=== PATIENT | male | born 1975 | race Caucasian/White ===

== ENCOUNTER 2017-04-26 11:41 | Emergency (ER) | payer SELFPAY ==
[~2017-04-26 11:41] MED LIST: SERT-234 PO
[2017-04-26 11:48] VITALS: TEMP 36.4; Ht 172.7 cm
[2017-04-26] MEDS ORDERED: SODIUM CHLORIDE 0.9% 1000ML 1,000 ML IV STA (12:02)
[2017-04-26] MEDS ORDERED: HYDROmorphone INJ 1 MG/ML SYR IV STA ×2 (12:02→14:03)
[2017-04-26] MEDS ORDERED: ONDANSETRON INJ 2 MG/ML 2 ML VIAL IV STA (12:02)
[2017-04-26] MEDS ORDERED: KETOROLAC TROMETHAMINE 30 MG/ML VIAL IV STA (12:02)
[2017-04-26] MEDS ORDERED: ONDANSETRON INJ 2 MG/ML 2 ML VIAL ONE (12:04)
[2017-04-26] MEDS ORDERED: HYDROmorphone INJ 1 MG/ML SYR ONE (12:04)
[2017-04-26] MEDS ORDERED: KETOROLAC TROMETHAMINE 30 MG/ML VIAL ONE (12:04)
--- NOTE | 2017-04-26 12:15 | EMERGENCY ROOM VISIT NOTE ---
History Report prepared by [place]: Anastasia Vazquez Under the Supervision of: Dr. Adarsh Siegel M.D. First contact with patient: 11:54 Chief Complaint: FLANK PAIN Stated Complaint: RT SIDE PAIN, VOMITING, BLOOD IN URINE, FEVER History of Present Illness The patient is a 41 year old male who presents to the Emergency Room with complaints of constant right sided flank pain beginning 1 week ago. The patient states that he started feeling feverish 1 week ago and went to see his primary care doctor 4 days ago, He reports that he had a urine test and a CT scan of his sinuses. He notes that he was put on Doxycycline and a renal ultrasound was ordered for tomorrow. The patient complains of a constant fever beginning 1 week ago, abdominal pain, nausea, and vomiting. He states that he has been taking only Tylenol for his pain. He rates his pain as a 10/10 in severity. Source of History: patient Onset: 1 week ago Position: other (right flank) Symptom Intensity: 10/10 Timing: constant Associated Symptoms: + fevers, + nausea, + vomiting, + abdominal pain Review of Systems See HPI for pertinent positives & negatives. A total of 10 systems reviewed and were otherwise negative. Past Medical & Surgical Medical Problems: (1) Anxiety Family History No pertinent family history stated. Social History Smoking Status: Never Smoker Marital Status: Occupation Status: employed Current/Historical Medications Scheduled Sulfa/Trimethoprim (Bactrim Ds 800MG/160MG), 1 TAB PO BID Tamsulosin Hcl (Flomax), 0.4 MG PO DAILY Scheduled PRN Oxycodone/Acetaminophen 5MG/325MG (Percocet 5MG/325MG), 1-2 TAB PO Q4H PRN for Pain Allergies Coded Allergies: No Known Allergies (Unverified , 04/26/17) Physical Exam Vital Signs Date Time Temp Pulse Resp B/P (MAP) Pulse Ox O2 Delivery O2 Flow Rate FiO2 04/26/17 13:46 66 22 130/67 95 Room Air 04/26/17 12:56 62 04/26/17 12:47 68 20 139/70 95 Room Air 04/26/17 11:48 36.4 68 22 169/96 94 Room Air Physical Exam GENERAL: Patient is a healthy-appearing well-nourished uncomfortable male HEAD: Normocephalic atraumatic EYES: Ocular movements intact pupils equal and react to light OROPHARYNX mucous membranes are moist no exudates present no erythema or edema present NECK: Supple no nuchal rigidity CHEST: Good equal expansion LUNGS: Clear and equal to auscultation CARDIAC: Normal S1 and S2 ABDOMEN: Soft nontender no guarding BACK: No CVA tenderness EXTREMITIES: No pain upon palpation normal muscle strength in all groups no clubbing cyanosis or edema NEURO: Patient is following commands and answering questions appropriately. Alert and oriented x3 Cranial Nerves 2-12 grossly intact Medical Decision & Procedures ER Provider Diagnostic Interpretation: CT results as stated below per my review and radiologist interpretation: CT SCAN OF THE ABDOMEN AND PELVIS WITHOUT CONTRAST FINDINGS: Lower chest: There are mild basilar atelectatic changes. Liver: The unenhanced liver is normal in size, contour, and attenuation. There is no intrahepatic biliary ductal dilatation. There is a small hiatal hernia with borderline thickening at the esophagogastric junction. Gallbladder: Unremarkable. Spleen: No focal splenic masses are visualized. The spleen is mildly enlarged measuring 12.5 cm. Pancreas: Unremarkable. Adrenal glands: Unremarkable. Kidneys: No renal calculi are visualized. There is mild right-sided hydronephrosis and hydroureter. There is a 4.5 mm distal right ureteral calculus near the level of ureteropelvic junction. Bowel: There are no transition zones indicate bowel obstruction. There is no acute diverticulitis. The appendix appears normal. Peritoneum: There is no intraperitoneal free air or abdominal ascites. Vasculature: The abdominal aorta is normal in course and caliber. Adenopathy: None. Pelvic viscera: The prostate is the upper limits of normal in size Skeletal structures: No destructive osseous lesions are seen. IMPRESSION: 4.5 mm distal right ureteral calculus with mild secondary obstructive change Electronically signed by: Toni Marrufo M.D. 04/26/2017 12:32 PM Dictated Date/Time: 04/26/2017 12:27 PM Laboratory Results 04/26/17 12:00 Red Blood Count 5.38, Mean Corpuscular Volume 86.6, Mean Corpuscular Hemoglobin 29.9, Mean Corpuscular Hemoglobin Concent 34.5, Mean Platelet Volume 10.3 04/26/17 12:00 Test 04/26/17 12:00 04/26/17 12:10 White Blood Count 5.21 K/uL (4.8-10.8) Red Blood Count 5.38 M/uL (4.7-6.1) Hemoglobin 16.1 g/dL (14.0-18.0) Hematocrit 46.6 % (42-52) Mean Corpuscular Volume 86.6 fL (80-100) Mean Corpuscular Hemoglobin 29.9 pg (25-34) Mean Corpuscular Hemoglobin Concent 34.5 g/dl (32-36) Platelet Count 166 K/uL (130-400) Mean Platelet Volume 10.3 fL (7.4-10.4) RDW Standard Deviation 37.4 fL (36.4-46.3) RDW Coefficient of Variation 11.7 % (11.5-14.5) Neutrophils % (Manual) 47.9 % Lymphocytes % (Manual) 24.3 % Variant Lymphocytes % (manual) 20.0 % Monocytes % (Manual) 7.8 % Neutrophils # (Manual) 2.50 K/uL (1.4-6.5) Total Absolute Neutrophils 2.50 K/uL (1.4-6.5) Lymphocytes # (Manual) 1.27 K/uL (1.2-3.4) Absolute Variant Lymphocytes 1.04 K/uL Total Absolute Lymphocytes 2.31 K/uL (1.2-3.4) Monocytes # (Manual) 0.41 K/uL (0.11-0.59) Anion Gap 7.0 mmol/L (3-11) Estimated GFR () 70.8 Estimated GFR (Non- 61.1 BUN/Creatinine Ratio 7.9 (10-20) Calcium Level 9.1 mg/dl (8.5-10.1) Total Bilirubin 0.5 mg/dl (0.2-1) Direct Bilirubin 0.1 mg/dl (0-0.2) Aspartate Amino Transf (AST/SGOT) 34 U/L (15-37) Alanine Aminotransferase (ALT/SGPT) 58 U/L (12-78) Alkaline Phosphatase 77 U/L (45-117) Total Protein 7.5 gm/dl (6.4-8.2) Albumin 4.2 gm/dl (3.4-5.0) Lipase 192 U/L (73-393) Urine Color ANDRY Urine Appearance CLOUDY (CLEAR) Urine pH 5.0 (4.5-7.5) Urine Specific [place] 1.035 (1.000-1.030) Urine Protein 2+ (NEG) Urine Glucose (UA) NEG (NEG) Urine Ketones TRACE (NEG) Urine Occult Blood 3+ (NEG) Urine Nitrite NEG (NEG) Urine Bilirubin NEG (NEG) Urine Urobilinogen NEG (NEG) Urine Leukocyte Esterase TRACE (NEG) Urine WBC (Auto) 1-5 /hpf (0-5) Urine RBC (Auto) >30 /hpf (0-4) Urine Hyaline Casts (Auto) 1-5 /lpf (0-5) Urine Epithelial Cells (Auto) 5-10 /lpf (0-5) Urine Bacteria (Auto) 1+ (NEG) Urine Crystals CALCIUM OXALATE (NONE Urine Mucus PRESENT (NONE PRSENT) Labs reviewed by ED physician. Medications Administered Medications (Trade) Dose Ordered Sig/Malinda Route Start Time Stop Time Status Last Admin Dose Admin Hydromorphone HCl (Dilaudid Inj) 1 mg STK-MED ONCE .ROUTE 04/26/17 12:04 04/26/17 12:05 DC 04/26/17 12:23 1 MG Ondansetron HCl (Zofran Inj) 4 mg STK-MED ONCE .ROUTE 04/26/17 12:04 04/26/17 12:05 DC 04/26/17 12:23 4 MG Sodium Chloride 1,000 ml @ 999 mls/hr Q1H1M STAT IV 04/26/17 12:02 04/26/17 13:02 DC 04/26/17 12:22 999 MLS/HR Ketorolac Tromethamine (Toradol Inj) 30 mg NOW STAT IV 04/26/17 12:02 04/26/17 12:05 DC 04/26/17 12:22 30 MG Tamsulosin HCl (Flomax Cap) 0.4 mg NOW ONCE PO 04/26/17 13:00 04/26/17 13:01 DC 04/26/17 12:59 0.4 MG Ceftriaxone Sodium (Rocephin Inj) 1 gm NOW STAT IV 04/26/17 13:16 04/26/17 13:17 DC 04/26/17 13:24 1 GM Trimethoprim/ Sulfamethoxazole (Septra Ds 800/ 160MG Tab) 1 tab NOW STAT PO 04/26/17 13:16 04/26/17 13:17 DC 04/26/17 13:24 1 TAB ED Course 1154: Past medical records reviewed. The patient was evaluated in room C1. A complete history and physical examination was performed. 1202: Zofran Inj 4mg IV, Dilaudid Inj 1mg IV, Toradol Inj 30mg IV, Sodium Chloride 1000 ml @ 999 mls/hr IV. 1204: Toradol Inj 30mg IV, Zofran Inj 4mg IV, Dilaudid Inj 1mg IV. 1300: Flomax Cap 0.4mg PO. 1316: Trimethoprim/Sulfamethoxazole 1tab PO, Rocephin Inj 1gm IV. 1329: Upon reexamination the patient is doing well. I discussed results and treatment plan with the patient. He verbalizes agreement and understanding. The patient is ready for discharge. Medical Decision Differential diagnosis: Etiologies such as renal colic, appendicitis, diverticulitis, mesenteric ischemia, aortic pathology, infections, inflammatory bowel disease, PUD, biliary pathology, UTI, as well as others were entertained. This is a 41-year-old male who presents emergency department very uncomfortable. He is complaining of right-sided flank pain. I will note that he is not running a fever and does not have an elevation in his white blood count cell count. An IV was established, patient given 1 mg of Dilaudid, Zofran , Toradol. Repeat examination revealed much improvement the patient's symptoms. The patient does have a small kidney stone present that I do believe he is about to pass. I will place the patient on Flomax and discussed the need for follow-up with urology. Patient was told to return to the emergency department if he develops fevers. Patient was in agreement with the treatment plan. Medication Reconcilliation Current Medication List: was personally reviewed by me Blood Pressure Screening Patient's blood pressure: Elevated blood pressure Blood pressure disposition: Referred to PCP Impression Primary Impression: Kidney stone Scribe Attestation The scribe's documentation has been prepared under my direction and personally reviewed by me in its entirety. I confirm that the note above accurately reflects all work, treatment, procedures, and medical decision making performed by me. Departure Information Dispostion Home / Self-Care Prescriptions Tamsulosin Hcl (FLOMAX) 0.4 Mg Cap 0.4 MG PO DAILY for 10 Days, #10 CAP Prov: Adarsh Siegel MD 04/26/17 Sulfa/Trimethoprim (Bactrim Ds 800MG/160MG) Tab 1 TAB PO BID for 10 Days, #20 TAB Prov: Adarsh Siegel MD 04/26/17 Oxycodone/Acetaminophen 5MG/325MG (PERCOCET 5MG/325MG) Tab 1-2 TAB PO Q4H Y for Pain, #14 TAB Prov: Adarsh Siegel MD 04/26/17 Referrals Anne Gauthier M.D. (PCP) Forms HOME CARE DOCUMENTATION FORM, IMPORTANT VISIT INFORMATION Patient Instructions Hypertension Dc, Kidney Stones - [facility], Kidney Stones Eval, Kidney Stones Expectant Therapy, Kidney Stones Identify, Kidney Stones Risk, My [facility] Additional Instructions Follow up with Dr Lance You were found to have an elevated blood pressure today (>120 sytolic or >90 diastolic). Per medicare guidelines, you need to follow up with this blood pressure screening with your Primary Care Physician (PCP). For a new PCP call [phone]. You received narcotic or benzodiazepene medication while in the emergency room today. Do not drive, operate heavy machinery, or drink alcohol under the influence of this medication. Take 600 mg Ibuprofen every 6 hours Take Percocet for breakthrough pain You have been examined and treated today on an emergency basis only. This is not a substitute for, or an effort to provide, complete comprehensive medical care. It is impossible to recognize and treat all injuries or illnesses in a single emergency department visit. It is therefore important that you follow up closely with Dr Gauthier. Call as soon as possible for an appointment. Thank you for your time and consideration. I look forward to speaking with you again soon. Please don't hesitate to call us if you have any questions.
[2017-04-26 12:16] LABS: HEMATOCRIT 46.6 % (42-52); MEAN CELL VOLUME 86.6 fL (80-100); MEAN CORPUSCULAR HEMOGLOBIN 29.9 pg (25-34); MEAN CORPUSCULAR HGB CONC 34.5 g/dl (32-36); MEAN PLATELET VOLUME 10.3 fL (7.4-10.4); PLATELET COUNT 166 K/uL (130-400); RED BLOOD COUNT 5.38 M/uL (4.7-6.1); WHITE BLOOD COUNT 5.21 K/uL (4.8-10.8)
--- NOTE | 2017-04-26 12:33 | DIAGNOSTIC IMAGING REPORT ---
CT SCAN OF THE ABDOMEN AND PELVIS WITHOUT CONTRAST CLINICAL HISTORY: Right flank pain COMPARISON STUDY: No previous studies for comparison. TECHNIQUE: CT scan of the abdomen and pelvis was performed from the lung bases to the proximal femurs. Images are reviewed in the axial, sagittal, and coronal planes. IV contrast was not administered for this examination. A dose lowering technique was utilized adhering to the principles of ALARA. CT DOSE: 335.75 mGy.cm FINDINGS: Lower chest: There are mild basilar atelectatic changes. Liver: The unenhanced liver is normal in size, contour, and attenuation. There is no intrahepatic biliary ductal dilatation. There is a small hiatal hernia with borderline thickening at the esophagogastric junction. Gallbladder: Unremarkable. Spleen: No focal splenic masses are visualized. The spleen is mildly enlarged measuring 12.5 cm. Pancreas: Unremarkable. Adrenal glands: Unremarkable. Kidneys: No renal calculi are visualized. There is mild right-sided hydronephrosis and hydroureter. There is a 4.5 mm distal right ureteral calculus near the level of ureteropelvic junction. Bowel: There are no transition zones indicate bowel obstruction. There is no acute diverticulitis. The appendix appears normal. Peritoneum: There is no intraperitoneal free air or abdominal ascites. Vasculature: The abdominal aorta is normal in course and caliber. Adenopathy: None. Pelvic viscera: The prostate is the upper limits of normal in size Skeletal structures: No destructive osseous lesions are seen. IMPRESSION: 4.5 mm distal right ureteral calculus with mild secondary obstructive change Electronically signed by: Toni Marrufo M.D. 04/26/2017 12:32 PM Dictated Date/Time: 04/26/2017 12:27 PM
[2017-04-26 12:34] LABS: URINE APPEARANCE CLOUDY (CLEAR); URINE NITRITE NEG (NEG); URINE SPECIFIC GRAVITY 1.035 (1.000-1.030); UROBILINOGEN NEG (NEG)
[2017-04-26 12:41] LABS: COMPLETE YES; LYMPH ABS # 1.27 K/uL (1.2-3.4); LYMPHOCYTE % 24.3 %; NEUTROPHILS % 47.9 %; VARIANT LYM ABS # 1.04 K/uL
[2017-04-26 12:42] LABS: ALT/SGPT 58 U/L (12-78); AST/SGOT 34 U/L (15-37); BLOOD UREA NITROGEN 11 mg/dl (7-18); BUN/CREATININE RATIO 7.9 (10-20); CALCIUM 9.1 mg/dl (8.5-10.1); CARBON DIOXIDE 26 mmol/L (21-32); CHLORIDE 107 mmol/L (98-107); GLUCOSE 110 mg/dl (70-99); SODIUM 140 mmol/L (136-145)
[2017-04-26 12:45] LABS: ALKALINE PHOSPHATASE 77 U/L (45-117)
[2017-04-26 12:55] LABS: MANUAL MICROSCOPIC REQUIRED? NO; REVIEW REQ? YES; URINE BILIRUBIN NEG (NEG); URINE COLOR AMBER
[2017-04-26] MEDS ORDERED: TAMSULOSIN HCL 0.4 MG CAP PO ONE (13:00)
[2017-04-26 13:04] LABS: URINE MUCUS PRESENT (NONE PRSENT)
[2017-04-26 13:08] LABS: ZZUR CULT IF INDIC CLEAN CATCH YES
[2017-04-26] MEDS ORDERED: SULFAMETHOXAZOLE/TRIMETHOPRIM DS 800/160MG TAB PO STA (13:16)
[2017-04-26] MEDS ORDERED: CEFTRIAXONE SOD INJ 1 GM ADDVIAL IV STA (13:16)
[2017-04-26] MEDS ORDERED: SULF800T23 PO (13:20)
[2017-04-26] MEDS ORDERED: TAMS0.4C38 PO (13:20)
[2017-04-26] MEDS ORDERED: OXYC-57 PO (13:20)
[2017-04-26 13:46] VITALS: BP 130/67; PULSE 66; O2SAT 95
[2017-05-01] MEDS ORDERED: IBUP-1450 PO (14:32)
[2017-05-01] MEDS ORDERED: OXYC-57 PO (16:02)
[2017-05-08] MEDS ORDERED: PARO1TAB27 PO (09:14)
[2017-05-08] MEDS ORDERED: TAMS0.4C38 PO (09:14)
[2017-05-08] MEDS ORDERED: bactrim PO (09:14)
[2017-05-08] MEDS ORDERED: FAMO20TA11 PO (09:27)
[2017-05-25] MEDS ORDERED: OXYC-57 PO (13:51)
[2017-05-25] MEDS ORDERED: CIPR-255 PO (13:51)
[2017-05-25] MEDS ORDERED: PHEN-775 PO (13:51)
== END 2017-04-26 14:02 | disposition home or self-care (01) ==
LOC: C.EDB 11:42 → C.EDA 14:02
DX: N20.0 Calculus of kidney (principal); F41.9 Anxiety disorder, unspecified

== ENCOUNTER → 2017-05-01 | Day surgery (SDC) | payer SELFPAY ==
[~2017-05-01] VITALS: Ht 172.7 cm; Wt 84.0 kg
[~2017-05-01] MED LIST changes: +ATROPINE SULFATE 0.1 MG/ML 5ML SYR IV PRN; +CIPR-255 PO; +CIPROFLOXACIN / D5W 400 MG IV SCH; +CONRAY 30% 150ML BOTTLE ONE; +ESMOLOL HCL 10 MG/ML 10 ML VIAL ONE; +EpHEDrine SULFATE INJ 50 MG/ML AMP IV PRN; +FAMO20TA11 PO; +FENTANYL CITRATE INJ 50 MCG/1 ML 2 ML VIAL ONE; +GENTAMICIN INJ 120 MG in DEXTROSE 5% 100ML 100 ML IV SCH; +IBUP-1450 PO; +KETOROLAC TROMETHAMINE 30 MG/ML VIAL ONE; +LIDOCAINE HCL 2% 2 ML VIAL (20MG/ML) ONE; +MIDAZOLAM HCL 1 MG/ML 2ML VIAL ONE; +OXYC-57 PO; +OXYCODONE/ACETAMINOPHEN 5-325 TAB PO PRN; +PARO1TAB27 PO; +PHEN-775 PO; +PROPOFOL IV EMULSION 10 MG/ML 20 ML VIAL IV ONE; -SERT-234 PO; +SUCCINYLCHOLINE CHLORIDE 20 MG/ML 10 ML VIAL IV ONE; +SULF800T23 PO; +TAMS0.4C38 PO; +bactrim PO
--- NOTE | 2017-05-01 14:24 | DIAGNOSTIC IMAGING REPORT ---
KUB CLINICAL HISTORY: Right ureteral stone. FINDINGS: 2 AP supine abdominal radiographs are correlated with abdominal CT dated 04/26/2017. There is a nonobstructed abdominal bowel gas pattern. There is a 5 mm calculus projecting over the right vesicoureteral junction, corresponding to the obstructing ureteral stone seen on the 04/26/2017 CT scan. No additional calcifications are seen projecting over either kidney. Additional pelvic phleboliths are identified. The bony structures appear intact. IMPRESSION: There is unchanged appearance of a distal right ureteral calculus as compared to the 04/26/[address] scan. Electronically signed by: Ethan Carrasquillo M.D. 05/01/2017 2:23 PM Dictated Date/Time: 05/01/2017 2:20 PM
--- NOTE | 2017-05-01 14:26 | DIAGNOSTIC IMAGING REPORT ---
CHEST 2 VIEWS ROUTINE HISTORY: 41 years-old Male RIGHT URETERAL STONE COMPARISON: Chest radiograph 01/14/2016 TECHNIQUE: PA and lateral views of the chest FINDINGS: The cardiomediastinal and hilar silhouettes are within normal limits. There is no pneumothorax, pleural effusion, focal airspace consolidation or overt pulmonary edema. The bones are grossly intact. Upper abdominal structures are within normal limits. IMPRESSION: No acute cardiopulmonary process. The above report was generated using voice recognition software. It may contain grammatical, syntax or spelling errors. Electronically signed by: Jacob Holland M.D. 05/01/2017 2:25 PM Dictated Date/Time: 05/01/2017 2:24 PM
[2017-05-01 14:33] VITALS: BP 141/73; PULSE 72; TEMP 36.9; O2SAT 97; Ht 172.7 cm; Wt 84.0 kg
--- NOTE | 2017-05-01 16:03 | Discharge Instructions ---
Discharge Instructions Date of Service May 01, 2017. Visit Reason for Visit: Right Ureteral Stone Discharge Discharge Diagnosis / Problem: right ureteral stone with fever Discharge Goals Goal(s): Therapeutic intervention Activity Recommendations Activity Limitations: resume your previous activity (take it easy today) Anesthesia . Post Anesthesia Instructions: If you have had General Anesthesia or IV Sedation: * Do not drive today. * Resume driving when surgeon permits. * Do not make important decisions or sign legal documents today. * Call surgeon for: 1. Temperature elevations greater than 101 degrees F. 2. Uncontrollable pain. 3. Excessive bleeding. 4. Persistent nausea and vomiting. 5. Medication intolerance (nausea, vomiting or rash). * For nausea and vomiting use only clear liquids such as: tea, soda, bouillon until nausea subsides, then gradually increase diet as tolerated. * If you have any concerns or questions, call your surgeon's office. If physician is unavailable and it is an emergency, call 911 or go to the nearest emergency room. . Diet Recommendations Recommended Home Diet: resume previous diet Procedures Procedures Performed: Cystoscopy, right retrograde pyelogram, right ureteral stent insertion Pending Studies Studies pending at discharge: no Medical Emergencies . Who to Call and When: Medical Emergencies: If at any time you feel your situation is an emergency, please call 911 immediately. . Non-Emergent Contact Non-Emergency issues call your: Urologist Call Non-Emergent contact if: temperature is above 101.5, your pain is not controlled . . "Provider Documentation" section prepared by Michael Prajapati. . [place] Drug Monitoring Program Search Results: patient reviewed within database
--- NOTE | 2017-05-01 16:19 | DIAGNOSTIC IMAGING REPORT ---
RETROGRADE INCLUDES KUB CLINICAL HISTORY: RETROGRADE AND RIGHT STENT PLACEMENT TECHNIQUE: Image intensifier COMPARISON STUDY: None FINDINGS: Successful placement of a right ureteral stent. IMPRESSION: Successful placement of a right ureteral stent. The above report was generated using voice recognition software. It may contain grammatical, syntax or spelling errors. Electronically signed by: Callum Daily M.D. 05/01/2017 4:18 PM Dictated Date/Time: 05/01/2017 4:16 PM
--- NOTE | 2017-05-01 16:21 | [facility] Operative Report ---
Operative Report Operative Date May 01, 2017. Pre-Operative Diagnosis Right Ureteral Stone; Nephrolithiasis with fever Hydronephrosis of Right Kidney Post-Operative Diagnosis Same as preop Procedure(s) Performed Cystoscopy, right retrograde pyelogram, right ureteral stent insertion Surgeon Dr. Prajapati Operation Shift Supervisor Surgeon(s) none Estimated Blood Loss 0mL Findings Anterior urethra was normal. Prostatic fossa was nonobstructing. Bladder showed no mucosal abnormalities. Retrograde showed a stone in the distal ureter with proximal hydroureteronephrosis. On passing the stent which was very tight the stone appeared to be impacted. Specimens none, Per Surgeon Drains 6x26 right stent Anesthesia general Complication(s) None Disposition Recovery Room / PACU Indications Right ureteral stone with fever Description of Procedure Patient was brought to the operating room placed supine on the table. After appropriate timeout was performed Gen. anesthesia was administered. Patient was then placed in the dorsal lithotomy position. Lower abdomen and genitalia were prepped with Hibiclens and draped in sterile fashion. Next using a 22 [place] cystoscopy for routine cystoscopic exam was performed the above-noted findings with the 30 and 70 lenses. Next a right retrograde pyelogram was performed using a 5 [place]an open-ended catheter and then through this catheter a 0.038 guidewire was passed up the ureter to position in the renal pelvis confirmed by fluoroscopy. The stone was very tightly impacted into the distal ureter although I was able to dislodge it. After this a 6 [place]an by 26 cm stent was passed up the right ureter under fluoroscopic guidance and positioned in the renal pelvis confirmed by fluoroscopy the guidewire was removed and there was a good curl at the bladder level. Patient's bladder was then drained. Cystoscope and sheath were removed. All needle sponge counts are correct in the case. Patient was taken to the recovery room in stable condition I attest to the content of the Intraoperative Record and any orders documented therein. Any exceptions are noted below.
--- NOTE | 2017-05-01 16:26 | Anesthesiology Progress Note ---
Anesthesia Post Op Note Date & Time May 01, 2017 at 16:26 Vital Signs Pain Intensity: 1 Vital Signs Past 12 Hours Date Time Temp Pulse Resp B/P (MAP) Pulse Ox O2 Delivery O2 Flow Rate FiO2 05/01/17 15:57 36.6 107 20 118/63 98 Mask 10 05/01/17 14:33 36.9 72 18 141/73 (95) 97 Room Air Notes Mental Status: alert / awake / arousable, participated in evaluation Pt Amnestic to Procedure: Yes Nausea / Vomiting: adequately controlled Pain: adequately controlled Airway Patency, RR, SpO2: stable & adequate BP & HR: stable & adequate Hydration State: stable & adequate Anesthetic Complications: no major complications apparent
[2017-05-01 16:45] VITALS: BP 113/68; PULSE 90; TEMP 36.5; O2SAT 92
[2017-05-01 17:15] VITALS: BP 134/76; PULSE 76; O2SAT 95
[2017-05-01 17:52] VITALS: BP 137/81; PULSE 74; TEMP 36.5; O2SAT 94
== END | disposition home or self-care (01) ==
LOC: C.ACU 13:45
PROVIDERS: ATTEND Urology
DX: N13.2 Hydronephrosis with renal and ureteral calculous obstruction (principal); F31.9 Bipolar disorder, unspecified; F41.9 Anxiety disorder, unspecified; Z72.0 Tobacco use

== ENCOUNTER → 2017-05-08 | Day surgery (SDC) | payer SELFPAY ==
[~2017-05-08] VITALS: Ht 172.7 cm; Wt 85.0 kg
[~2017-05-08] MED LIST changes: -CONRAY 30% 150ML BOTTLE ONE; +DEXAMETHASONE SOD INJ 4 MG/ML VIAL ONE; -ESMOLOL HCL 10 MG/ML 10 ML VIAL ONE; +FENTANYL CITRATE INJ 50 MCG/1 ML 2 ML VIAL IV PRN; +FLUMAZENIL 0.1 MG/1 ML 10 ML VIAL IV PRN; -GENTAMICIN INJ 120 MG in DEXTROSE 5% 100ML 100 ML IV SCH; +HYDROmorphone INJ 2 MG/ML SYR/VIAL IV PRN; -KETOROLAC TROMETHAMINE 30 MG/ML VIAL ONE; +LABETALOL HCL IV 5 MG/ML 20ML IV PRN; +LACTATED RINGER'S 1000ML 1,000 ML IV SCH; +MEPERIDINE HCL 25 MG/ML CARP IV PRN; +NALOXONE HCL 0.4 MG/1 ML VIAL/CARP IV PRN; +ONDANSETRON INJ 2 MG/ML 2 ML VIAL IV PRN; +ONDANSETRON INJ 2 MG/ML 2 ML VIAL ONE; +PHENYLEPHRINE 100MCG/ML 5ML SYR IV PRN; -SUCCINYLCHOLINE CHLORIDE 20 MG/ML 10 ML VIAL IV ONE; -SULF800T23 PO
[2017-05-08 09:14] VITALS: Ht 172.7 cm; Wt 85.0 kg
--- NOTE | 2017-05-08 09:48 | History & Physical Bridge Note ---
H&P Re-Evaluation Bridge Note: I have examined the patient, reviewed the History & Physical and in the interval since the performance of the History & Physical I have noted the following changes of clinical significance: No changes noted
--- NOTE | 2017-05-08 12:24 | Discharge Instructions ---
Discharge Instructions Date of Service May 08, 2017. Admission Reason for Admission: Stones Discharge Discharge Diagnosis / Problem: R distal ureteral stone s/p ESWL Discharge Goals Goal(s): Decrease discomfort, Improve function, Increase independence, Therapeutic intervention Activity Recommendations Activity Limitations: as noted below Lifting Limitations: no more than 25 pounds, gradually increase as tolerated ( x 3 days) Exercise/Sports Limitations: rest today, gradually increase as tolerated (x 3 days) May Resume Sexual Activity: when tolerated Shower/Bathe: no limitations Driving or Machine Use: resume 1 day after discharge . Discharge Diet Recommended Diet: Regular Diet (good fluid intake) Procedures Procedures Performed: Right Extracorporeal Shock Wave Lithotripsy - Ureteral Pending Studies Studies pending at discharge: no Medical Emergencies . Who to Call and When: Medical Emergencies: If at any time you feel your situation is an emergency, please call 911 immediately. . Non-Emergent Contact Non-Emergency issues call your: Urologist Call Non-Emergent contact if: you have a fever, temperature is above 101, your pain is not controlled, your pain is worsening, your pain is unusual for you, your pain is concerning you, you have any medication questions . . "Provider Documentation" section prepared by Greg Esteves. . VTE Core Measure Inpt VTE Proph given/why not?: SCD's
--- NOTE | 2017-05-08 12:31 | [facility] Operative Report ---
Operative Report Operative Date May 08, 2017. Pre-Operative Diagnosis Right distal ureteral calculi with indwelling stent Post-Operative Diagnosis Same as pre-op Procedure(s) Performed Right Extracorporeal Shock Wave Lithotripsy - Ureteral Surgeon Dr. Tiffany Esteves Subway Conductor Surgeon(s) None Estimated Blood Loss 0 mL Findings Good fragmentation of ureteral stone alongside stent Specimens None Drains Indwelling stent Anesthesia GAET Complication(s) None Disposition Recovery Room / PACU Indications 41 yo male with a history of intractable colic, stone, possible infection decompressed with an indwelling stent here for ESWL of his R distal ureteral stone. Please see H&P for further details, remains on antibiotics. Description of Procedure The patient was brought to the litho suite. He was correctly identified and the stone was visualized on his most recent x-rays. After the correct time out was performed the patient was positioned over the therapy head. An adequate level of anesthesia was administered. The extracorporeal shockwave lithotripsy treatment was then commenced. Please see the [place] Stone Management sheet for complete treatment summary. After completion of the procedure the patient was taken to the recovery room in stable condition. I attest to the content of the Intraoperative Record and any orders documented therein. Any exceptions are noted below.
--- NOTE | 2017-05-08 12:35 | [facility] Post Operative Brief Note ---
Immediate Operative Summary Operative Date May 08, 2017. Pre-Operative Diagnosis Right distal ureteral calculi with indwelling stent Post-Operative Diagnosis Same as pre-op Procedure(s) Performed Right Extracorporeal Shock Wave Lithotripsy - Ureteral Surgeon Dr. Tiffany Esteves Media Production Operator Surgeon(s) None Estimated Blood Loss 0 mL Findings Excellent stone fragmentation on fluoroscopy Specimens None Drains Indwelling stent Anesthesia GAET Complication(s) None Disposition Recovery Room / PACU
[2017-05-08 13:07] VITALS: TEMP 36.6
--- NOTE | 2017-05-08 13:25 | Anesthesia Progress Nt - [facility] ---
Anesthesia Post Op Note Date & Time May 08, 2017 at 13:24 Vital Signs Pain Intensity: 0 Vital Signs Past 12 Hours Date Time Temp Pulse Resp B/P (MAP) Pulse Ox O2 Delivery O2 Flow Rate FiO2 05/08/17 13:07 36.6 76 16 108/73 (85) 95 Room Air 05/08/17 12:59 37.0 77 16 106/71 96 Room Air 05/08/17 12:58 83 18 94 05/08/17 12:58 82 18 05/08/17 12:55 103/69 05/08/17 12:55 103/69 05/08/17 12:53 78 20 05/08/17 12:53 79 20 98 05/08/17 12:53 79 20 98 05/08/17 12:53 78 20 05/08/17 12:50 111/72 05/08/17 12:50 111/72 05/08/17 12:48 80 19 93 05/08/17 12:48 80 19 93 05/08/17 12:48 79 19 05/08/17 12:48 79 19 05/08/17 12:45 120/67 05/08/17 12:45 120/67 05/08/17 12:43 85 13 05/08/17 12:43 86 13 97 05/08/17 12:43 85 13 05/08/17 12:43 86 13 97 05/08/17 12:40 122/73 05/08/17 12:40 122/73 05/08/17 12:38 81 22 97 05/08/17 12:38 81 22 97 05/08/17 12:38 84 22 05/08/17 12:38 84 22 05/08/17 12:37 91 22 96 05/08/17 12:37 92 22 05/08/17 12:35 137/76 05/08/17 12:33 139/72 05/08/17 12:32 37.3 86 18 139/72 98 Mask 6 05/08/17 09:14 36.7 65 16 115/69 (84) 95 Room Air Notes Mental Status: alert / awake / arousable, participated in evaluation Pt Amnestic to Procedure: Yes Nausea / Vomiting: adequately controlled Pain: adequately controlled Airway Patency, RR, SpO2: stable & adequate BP & HR: stable & adequate Hydration State: stable & adequate Anesthetic Complications: no major complications apparent
[2017-05-08 13:27] VITALS: BP 138/80; PULSE 75; O2SAT 96
== END | disposition home or self-care (01) ==
LOC: X.SURG 08:49
PROVIDERS: ATTEND Urology
DX: N20.0 Calculus of kidney (principal); N13.30 Unspecified hydronephrosis; F41.9 Anxiety disorder, unspecified; M19.90 Unspecified osteoarthritis, unspecified site; F31.9 Bipolar disorder, unspecified; Z90.89 Acquired absence of other organs; K21.9 Gastro-esophageal reflux disease without esophagitis

== ENCOUNTER 2017-05-25 13:25 | Day surgery (SDC) | payer SELFPAY ==
[~2017-05-25 13:25] MED LIST changes: -ATROPINE SULFATE 0.1 MG/ML 5ML SYR IV PRN; -CIPR-255 PO; -EpHEDrine SULFATE INJ 50 MG/ML AMP IV PRN; -FENTANYL CITRATE INJ 50 MCG/1 ML 2 ML VIAL IV PRN; -FLUMAZENIL 0.1 MG/1 ML 10 ML VIAL IV PRN; +GENTAMICIN INJ 120 MG in DEXTROSE 5% 100ML 100 ML IV SCH; -HYDROmorphone INJ 2 MG/ML SYR/VIAL IV PRN; -LABETALOL HCL IV 5 MG/ML 20ML IV PRN; -MEPERIDINE HCL 25 MG/ML CARP IV PRN; -NALOXONE HCL 0.4 MG/1 ML VIAL/CARP IV PRN; -ONDANSETRON INJ 2 MG/ML 2 ML VIAL IV PRN; -OXYCODONE/ACETAMINOPHEN 5-325 TAB PO PRN; -PHEN-775 PO; -PHENYLEPHRINE 100MCG/ML 5ML SYR IV PRN; -TAMS0.4C38 PO
--- NOTE | 2017-05-25 13:32 | Discharge Instructions ---
Discharge Instructions Date of Service May 25, 2017. Admission Reason for Admission: Right Distal Ureteral Stone Discharge Discharge Diagnosis / Problem: R distal ureteral stone Discharge Goals Goal(s): Decrease discomfort, Improve disease control, Therapeutic intervention Activity Recommendations Activity Limitations: as noted below Lifting Limitations: no more than 25 pounds, gradually increase as tolerated Exercise/Sports Limitations: rest today, gradually increase as tolerated May Resume Sexual Activity: after follow-up appointment Shower/Bathe: no limitations Driving or Machine Use: resume 1 day after discharge . Instructions / Follow-Up Instructions / Follow-Up As scheduled in office with KUB Xray prior for stent removal, call office with questions. Discharge Diet Recommended Diet: Regular Diet (good fluid intake) Procedures Procedures Performed: Cysto, R ureteral stent exchange, right semirigid ureteroscopy, laser lithotripsy and basket stone extraction Pending Studies Studies pending at discharge: yes List of pending studies: Stone analysis Medical Emergencies . Who to Call and When: Medical Emergencies: If at any time you feel your situation is an emergency, please call 911 immediately. . Non-Emergent Contact Non-Emergency issues call your: Urologist Call Non-Emergent contact if: you have a fever, temperature is above 101, your pain is not controlled, your pain is worsening, your pain is unusual for you, your pain is concerning you, you have any medication questions . . "Provider Documentation" section prepared by Greg Esteves. . VTE Core Measure Inpt VTE Proph given/why not?: SCD's [place] Drug Monitoring Program Search Results: patient reviewed within database, see additional documentation (last Rx a month ago)
[2017-05-25 13:45] VITALS: BP 152/72; PULSE 78; TEMP 36.8; O2SAT 98
[2017-05-25] MEDS ORDERED: CIPR-255 PO (13:51)
[2017-05-25] MEDS ORDERED: PHEN-775 PO (13:51)
[2017-05-25] MEDS ORDERED: OXYC-57 PO (13:51)
[2017-05-25] MEDS ORDERED: CONRAY 30% 150ML BOTTLE ONE (14:10)
[2017-05-25] MEDS ORDERED: ROCURONIUM BROMIDE 10 MG/ML 5 ML VIAL IV ONE (14:41)
[2017-05-25] MEDS ORDERED: SUCCINYLCHOLINE CHLORIDE 20 MG/ML 10 ML VIAL IV ONE (14:41)
[2017-05-25] MEDS ORDERED: METOCLOPRAMIDE HCL INJ 5 MG/ML 2 ML VIAL ONE (14:44)
--- NOTE | 2017-05-25 15:03 | DIAGNOSTIC IMAGING REPORT ---
RETROGRADE INCLUDES KUB CLINICAL HISTORY: Lithotripsy. COMPARISON STUDY: KUB May 22, 2017. Fluoroscopy time: 43 seconds. FINDINGS: 5 fluoroscopic images were obtained. Initial image demonstrates a right ureteral stent with possible visualization of the right ureteral calculus. Subsequent images demonstrate a stent exchange. Proximal aspect of stent is within the right renal pelvis. Final image demonstrates a possible calculus along the stent within the mid right ureter. IMPRESSION: Fluoroscopic images from right ureteral stent exchange. Electronically signed by: Landen Stearns M.D. 05/25/2017 3:02 PM Dictated Date/Time: 05/25/2017 3:00 PM
--- NOTE | 2017-05-25 15:06 | [facility] Post Operative Brief Note ---
Immediate Operative Summary Operative Date May 25, 2017. Pre-Operative Diagnosis Persistent Right Distal Ureteral Stone Post-Operative Diagnosis Same Procedure(s) Performed Cystoscopy, right ureteral stent exchange, right semirigid ureteroscopy, laser lithotripsy and basket stone extraction Surgeon Dr. Tiffany Esteves Corporate Affairs Manager Surgeon(s) none Estimated Blood Loss 0 ml Findings Stones found in distal ureter, fragmented and extracted, good stent position after completion of case, no ureteral injury Specimens A) Right distal calculus for chemical analysis Drains 6 fr 26 cm R JJ ureteral stent Anesthesia GAET Complication(s) None Disposition Recovery Room / PACU
--- NOTE | 2017-05-25 15:10 | [facility] Operative Report ---
Operative Report Operative Date May 25, 2017. Pre-Operative Diagnosis Persistent Right Distal Ureteral Stone Post-Operative Diagnosis Same Procedure(s) Performed Cystoscopy, right ureteral stent exchange, right semirigid ureteroscopy, laser lithotripsy and basket stone extraction Surgeon Dr. Tiffany Esteves Environmental Services Supervisor Surgeon(s) none Estimated Blood Loss 0 ml Findings Stones found in distal ureter, fragmented and extracted, good stent position after completion of case, no ureteral injury Specimens A) Right distal calculus for chemical analysis Drains 6 fr 26 cm R JJ ureteral stent Anesthesia GAET Complication(s) None Disposition Recovery Room / PACU Indications 41-year-old male with a history of a right distal ureteral stone, urinary tract infection and acute ureteral stent placement status post lithotripsy of his right distal ureteral stone with persistence on KUB here for endoscopic management. Please see H&P for further details. Intravenous ciprofloxacin and gentamicin provided for antibiotic coverage and SCDs used for DVT prophylaxis. Description of Procedure Patient was properly identified and brought into the operative suite after identification of appropriate consent in the chart. General anesthesia with endotracheal intubation due to history of hiatal hernia and aspiration was provided and patient was prepped and draped in the standard fashion for this procedure. Full timeout procedure was followed. 22 English rigid cystoscope was passed into the bladder under direct visualization demonstrating mild to moderate BPH within normal urethra. Stent was visualized within the bladder with minimal encrustation protruding from the right ureteral orifice. This was grasped and brought out to the level of the meatus. This was cannulated using a sensor tip wire which was advanced up to the level of the right renal pelvis and kept until the end of the case as a safety wire. Semirigid ureteroscope was then advanced into the bladder after having drained through the cystoscope. This was easily able to be advanced into the ureter seen the prior stenting until the level of the stones was obtained. These were in the same position as noted on configuration developer imaging and previous KUB. Stone was fragmented into 2 pieces within the ureter using a 270 laser fiber. These were then grasped using a 0 tip basket and brought out through the meatus and sent for chemical analysis. Semirigid ureteroscope was able to be readvanced up to the level of the UPJ without difficulties or resistance with no evidence of mucosal abnormalities, ureteral injury or residual stone. Complete exit ureteroscopy confirmed the lack of ureteral injury or tears while mild to moderate edema was present at this time of previous stone location. Ureteroscope was removed and cystoscope was backloaded over the safety wire. A 6 English 26 cm double-J ureteral stent was advanced with a full coil present at the level of the renal pelvis and a focal present within the bladder with a hydronephrotic drip. Bladder was noted to be free of injuries or stone fragments was drained. Cystoscope was removed. Anesthesia was reversed and patient was transferred to the recovery room in stable condition. Prescription for a short course of ciprofloxacin, refill of Percocet and Pyridium were provided. Postoperative appointment for cystoscopy and stent removal with KUB was confirmed. Patient's instructed to contact us should he note any fevers, chills, nausea, vomiting or other significant difficulties in the postoperative period I attest to the content of the Intraoperative Record and any orders documented therein. Any exceptions are noted below.
[2017-05-25] MEDS ORDERED: PROMETHAZINE HCL INJ 6.25 MG in SODIUM CHLORIDE 0.9% 50ML 50 ML IV PRN (15:15)
[2017-05-25] MEDS ORDERED: ONDANSETRON INJ 2 MG/ML 2 ML VIAL IV PRN (15:15)
[2017-05-25] MEDS ORDERED: OXYCODONE/ACETAMINOPHEN 5-325 TAB PO PRN (15:15)
[2017-05-25] MEDS ORDERED: EpHEDrine SULFATE INJ 50 MG/ML AMP IV PRN (15:15)
[2017-05-25] MEDS ORDERED: ATROPINE SULFATE 0.1 MG/ML 5ML SYR IV PRN (15:15)
[2017-05-25] MEDS ORDERED: FENTANYL CITRATE INJ 50 MCG/1 ML 2 ML VIAL IV PRN (15:15)
[2017-05-25] MEDS ORDERED: PHENAZOPYRIDINE HCL 200 MG TAB PO PRN (15:15)
--- NOTE | 2017-05-25 15:58 | Anesthesiology Progress Note ---
Anesthesia Post Op Note Date & Time May 25, 2017 at 15:58 Vital Signs Pain Intensity: 0 Vital Signs Past 12 Hours Date Time Temp Pulse Resp B/P (MAP) Pulse Ox O2 Delivery O2 Flow Rate FiO2 05/25/17 15:35 36.6 73 20 116/63 99 Room Air 05/25/17 15:25 73 18 120/80 98 Room Air 05/25/17 15:15 86 16 132/99 100 Oxymask 8 05/25/17 15:05 36.1 80 16 118/66 100 Oxymask 8 05/25/17 13:45 36.8 78 18 152/72 (98) 98 Room Air Notes Mental Status: alert / awake / arousable, participated in evaluation Pt Amnestic to Procedure: Yes Nausea / Vomiting: adequately controlled Pain: adequately controlled Airway Patency, RR, SpO2: stable & adequate BP & HR: stable & adequate Hydration State: stable & adequate Anesthetic Complications: no major complications apparent
[2017-05-25 16:00] VITALS: BP 138/80; PULSE 65; TEMP 36.8; O2SAT 97
[2017-05-25 16:30] VITALS: BP 129/98; PULSE 70; O2SAT 97
[2017-05-25 16:55] VITALS: BP 142/90; PULSE 70; TEMP 36.8; O2SAT 98
== END 2017-05-25 17:05 | disposition home or self-care (01) ==
LOC: C.ACU 13:25
PROVIDERS: ATTEND Urology
DX: N13.2 Hydronephrosis with renal and ureteral calculous obstruction (principal); M19.90 Unspecified osteoarthritis, unspecified site; F31.9 Bipolar disorder, unspecified; F17.220 Nicotine dependence, chewing tobacco, uncomplicated; Z84.1 Family history of disorders of kidney and ureter; Z82.49 Family history of ischemic heart disease and other diseases of the circulatory system